=== PATIENT | male | born 1985 | race Caucasian/White ===

== ENCOUNTER 2017-02-10 08:13 | Emergency (ER) | payer SELFPAY | END 2017-02-10 11:00 | disposition home or self-care (01) | LOC: D.ER 08:13 | DX: J20.9 Acute bronchitis, unspecified (principal); F17.200 Nicotine dependence, unspecified, uncomplicated ==

== ENCOUNTER 2017-02-26 00:39 | Emergency (ER) | payer SELFPAY | END 2017-02-26 01:38 | disposition home or self-care (01) | LOC: D.ER 00:39 | DX: R07.89 Other chest pain (principal); J20.9 Acute bronchitis, unspecified; F17.200 Nicotine dependence, unspecified, uncomplicated ==

== ENCOUNTER 2017-02-26 23:26 | Emergency (ER) | payer SELFPAY | END 2017-02-27 00:21 | disposition home or self-care (01) | LOC: D.ER 23:26 | DX: J40 Bronchitis, not specified as acute or chronic (principal); M94.0 Chondrocostal junction syndrome [Tietze]; F17.200 Nicotine dependence, unspecified, uncomplicated ==